=== PATIENT | male | born 1970 | race African-American/Black ===

== ENCOUNTER 2018-06-08 08:21 | Emergency (ER) | payer MEDICAID ==
[~2018-06-08] VITALS: Ht 180.3 cm; Wt 113.0 kg
[2018-06-08] MEDS ORDERED: FLUORESCEIN SODIUM 1MG/STRIP OP ONE (08:45)
[2018-06-08] MEDS ORDERED: TETRACAINE 0.5% OPHTH DROPS 4ML OP ONE (08:45)
[2018-06-08] MEDS ORDERED: FLUORESCEIN SODIUM 1MG/STRIP BOTHEYE ONE (10:00)
[2018-06-08 10:18] LABS: BASOPHILS % 0.3 % (0.0-2.0); EOSINOPHILS % 1.9 % (0.0-5.0); HEMATOCRIT. 38.6 % (42.0-52.0); HEMOGLOBIN. 13.1 g/dL (14.0-18.0); LYMPHOCYTES % 20.9 % (20.0-50.0); MEAN CORPUSCULAR HEMOGLOBIN 30.9 pg (28.0-32.0); MEAN CORPUSCULAR VOLUME 90.9 fL (80.0-94.0); MEAN PLATELET VOLUME 7.4 fl (7.4-10.4); MONOCYTES % 9.6 % (2.0-8.0); NEUTROPHILS % 67.3 % (40.0-76.0); PLATELET 231 x1000/uL (130-400); RED BLOOD CELL COUNT 4.25 mill/uL (4.7-6.1); RED CELL DISTRIBUTION WIDTH 13.1 % (11.6-14.6)
[2018-06-08 10:23] LABS: CHLORIDE 108 mEq/L (98-107)
[2018-06-08] MEDS ORDERED: TOBRAMYCIN 0.3% OPHTH DROPS 5ML LEFTEYE ONE (11:00)
[2018-06-08] MEDS ORDERED: IBUPROFEN 600MG TABLET PO ONE (12:45)
[2018-06-08 13:13] VITALS: BP 110/53
== END 2018-06-08 13:07 | disposition home or self-care (01) ==
LOC: ER 09:22
DX: H16.002 Unspecified corneal ulcer, left eye (principal); I10 Essential (primary) hypertension; F17.200 Nicotine dependence, unspecified, uncomplicated; R51 Headache
CPT/HCPCS: 36415; 80048; 99284

== ENCOUNTER 2019-04-27 13:23 | Inpatient (IN) | payer MEDICAID, OTHER ==
[~2019-04-27] VITALS: Ht 180.3 cm; Wt 132.9 kg
[2019-04-27 16:53] LABS: BASOPHILS % 0.4 % (0.0-2.0); EOSINOPHILS % 4.2 % (0.0-5.0); HEMATOCRIT. 38.5 % (42.0-52.0); HEMOGLOBIN. 12.7 g/dL (14.0-18.0); MEAN CORPUSCULAR VOLUME 91.2 fL (80.0-94.0); MEAN PLATELET VOLUME 8.4 fl (7.4-10.4); MONOCYTES % 9.9 % (2.0-8.0); NEUTROPHILS % 67.5 % (40.0-76.0); PLATELET 228 x1000/uL (130-400); RED BLOOD CELL COUNT 4.23 mill/uL (4.7-6.1); RED CELL DISTRIBUTION WIDTH 13.5 % (11.6-14.6)
[2019-04-27 16:55] LABS: CHLORIDE 110 mEq/L (98-107)
[2019-04-27 17:48] LABS: CLARITY URINE CLEAR (CLEAR); COLOR URINE YELLOW (YELLOW); KETONES URINE NEGATIVE (NEGATIVE); LEUKOCYTE ESTERASE URINE NEGATIVE (NEGATIVE); NITRITE URINE NEGATIVE (NEGATIVE); OCCULT BLOOD URINE NEGATIVE (NEGATIVE); PROTEIN URINE NEGATIVE (NEGATIVE); SPECIFIC GRAVITY URINE 1.026 (1.005-1.030)
[2019-04-27] MEDS ORDERED: HYDRALAZINE 20MG/ML VIAL IV ONE ×2 (18:00→20:00)
[2019-04-27] MEDS ORDERED: NITROGLYCERIN 0.4MG TABLET SL SL PRN (18:15)
[2019-04-27] MEDS ORDERED: ACETAMINOPHEN 500MG TABLET PO ONE (18:15)
[2019-04-27] MEDS ORDERED: GABAPENTIN 400MG CAPSULE PO ONE (18:15)
[2019-04-27 18:36] LABS: *AMPHETAMINES SCREEN URINE NEGATIVE (NEGATIVE); *BARBITURATES SCREEN URINE NEGATIVE (NEGATIVE)
[2019-04-27 18:37] LABS: *BENZODIAZEPINES SCREEN URINE NEGATIVE (NEGATIVE); *COCAINE SCREEN URINE NEGATIVE (NEGATIVE); CANNABINOID URINE SCREEN NEGATIVE (NEGATIVE); METHADONE URINE SCREEN NEGATIVE (NEGATIVE); OPIATES URINE SCREEN NEGATIVE (NEGATIVE); PHENCYCLIDINE URINE SCREEN NEGATIVE (NEGATIVE)
[2019-04-27] MEDS ORDERED: KETOROLAC 15MG/ML VIAL IV ONE (20:15)
[2019-04-27 21:00] VITALS: BP 170/105
[2019-04-27] MEDS ORDERED: LABETALOL HCL 20MG/4ML CARPUJECT IV ONE (21:00)
[2019-04-27] MEDS ORDERED: LABETALOL 5MG/ML SYR 20 MG/4 ML SYRINGE IV ONE (21:15)
[2019-04-27] MEDS ORDERED: HYDROCODONE/ACETAMINOPHEN 10/325MG TABLET PO ONE (21:15)
[2019-04-27 22:00] VITALS: BP 184/100
[2019-04-28] VITALS: BP 182/99
[2019-04-28 04:00] VITALS: BP 197/92
[2019-04-28] MEDS ORDERED: MAGNESIUM/ALUMINUM HYDROXIDE/SIMETHICONE 30ML UDC PO PRN (07:45)
[2019-04-28] MEDS ORDERED: ONDANSETRON HCL 4MG/2ML INJ IV PRN (07:45)
[2019-04-28] MEDS ORDERED: GUAIFENESIN 200MG/10ML SUGAR FREE UDC PO PRN (07:45)
[2019-04-28] MEDS ORDERED: DOCUSATE SODIUM 100MG CAPSULE PO PRN (07:45)
[2019-04-28] MEDS ORDERED: ENOXAPARIN 40MG/0.4ML SYR SUBCUT SCH (07:45)
[2019-04-28] MEDS ORDERED: CLONIDINE 0.1MG TABLET PO PRN (07:45)
[2019-04-28] MEDS ORDERED: DIPHENHYDRAMINE 50MG/ML VIAL IV PRN (07:45)
[2019-04-28] MEDS ORDERED: NA PHOS,M-B/NA PHOS,DI-BA ENEMA 118ML PR PRN (07:45)
[2019-04-28] MEDS ORDERED: LORAZEPAM 2MG/ML CPJ IV PRN (07:45)
[2019-04-28] MEDS ORDERED: HYDRALAZINE 20MG/ML VIAL IV PRN (07:45)
[2019-04-28] MEDS ORDERED: IPRATROPIUM/ALBUTEROL 0.5-3(2.5)MG/3ML NEB HHN PRN (07:45)
[2019-04-28] MEDS ORDERED: ACETAMINOPHEN 325MG TABLET PO PRN (07:45)
[2019-04-28] MEDS ORDERED: MORPHINE SULFATE 2 MG/ML CPJ (NOT FOR IM USE) IV PRN (07:45)
[2019-04-28 08:00] VITALS: BP 189/95
[2019-04-28] MEDS: ENOXAPARIN 40MG/0.4ML SYR SUBCUT SCH ×2 (08:36→21:08)
[2019-04-28] MEDS: ASPIRIN 81MG EC TABLET PO SCH (08:36)
[2019-04-28] MEDS ORDERED: INFLUENZA VIRUS VACCINE(AFLURIA) 0.5ML SYR IM ONE (10:00)
[2019-04-28] MEDS: LISINOPRIL 40MG TABLET PO SCH (10:24)
[2019-04-28 12:00] VITALS: BP 162/80
[2019-04-28] MEDS: SODIUM CHLORIDE 0.9% INJ 3ML FLUSH IVF SCH ×2 (14:34→21:08)
[2019-04-28] MEDS: CLONIDINE 0.2MG TABLET PO SCH ×2 (14:34→21:08)
[2019-04-28 16:00] VITALS: BP 169/103
[2019-04-28 16:39] LABS: CREATINE KINASE 92 IU/L (39-308)
[2019-04-28 16:42] LABS: CREATINE KINASE MB FRACTION < 1.0 ng/mL (0.5-3.6)
[2019-04-28 20:00] VITALS: BP 150/75
[2019-04-28] MEDS ORDERED: AMLODIPINE 5MG TABLET PO SCH (21:00)
[2019-04-28] MEDS: ATORVASTATIN CALCIUM 20MG TABLET PO SCH (21:07)
[2019-04-28 23:21] LABS: CREATINE KINASE 79 IU/L (39-308)
[2019-04-28 23:22] LABS: CREATINE KINASE MB FRACTION < 1.0 ng/mL (0.5-3.6)
[2019-04-29] VITALS: BP 136/73
[2019-04-29 04:00] VITALS: BP 120/78
[2019-04-29] MEDS: SODIUM CHLORIDE 0.9% INJ 3ML FLUSH IVF SCH ×3 (05:43→22:06)
[2019-04-29] MEDS: HYDROCODONE/ACETAMINOPHEN 10/325MG TABLET PO PRN ×2 (05:46→19:33)
[2019-04-29] MEDS: CLONIDINE 0.2MG TABLET PO SCH ×3 (06:30→22:05)
[2019-04-29 06:38] LABS: CHLORIDE 108 mEq/L (98-107)
[2019-04-29 06:39] LABS: BASOPHILS % 0.2 % (0.0-2.0); EOSINOPHILS % 3.8 % (0.0-5.0); HEMATOCRIT. 37.3 % (42.0-52.0); HEMOGLOBIN. 12.3 g/dL (14.0-18.0); LYMPHOCYTES % 17.7 % (20.0-50.0); MEAN CORPUSCULAR VOLUME 90.8 fL (80.0-94.0); MEAN PLATELET VOLUME 7.9 fl (7.4-10.4); MONOCYTES % 11.5 % (2.0-8.0); NEUTROPHILS % 66.8 % (40.0-76.0); PLATELET 224 x1000/uL (130-400); RED BLOOD CELL COUNT 4.11 mill/uL (4.7-6.1); RED CELL DISTRIBUTION WIDTH 13.2 % (11.6-14.6)
[2019-04-29 07:00] LABS: HDL CHOLESTEROL 42 mg/dL (40-59); LDL CHOLESTEROL 74 mg/dL (5-100); T4 FREE 0.96 ng/dL (0.76-1.46)
[2019-04-29 08:00] VITALS: BP 125/75
[2019-04-29] MEDS: ENOXAPARIN 40MG/0.4ML SYR SUBCUT SCH ×2 (09:21→22:05)
[2019-04-29] MEDS: LISINOPRIL 40MG TABLET PO SCH (09:21)
[2019-04-29] MEDS: FUROSEMIDE 40MG/4ML VIAL IVP SCH ×2 (09:21→17:15)
[2019-04-29] MEDS: ASPIRIN 81MG EC TABLET PO SCH (09:22)
[2019-04-29] MEDS ORDERED: AMLODIPINE 5MG TABLET PO SCH (10:15)
[2019-04-29 12:12] VITALS: BP 124/72
[2019-04-29 16:00] VITALS: BP 159/90
[2019-04-29 20:00] VITALS: BP 145/77
[2019-04-29] MEDS: ATORVASTATIN CALCIUM 20MG TABLET PO SCH (22:05)
[2019-04-30] VITALS: BP 150/82
== END 2019-04-30 03:15 | disposition left against medical advice (07) | DRG 199 ==
LOC: ER 13:23 → 8WST 18:02 → EDBEDREQ 18:23 → EDBEDREQTM 18:23 → ENRESERV 19:44 → 8WST 04-28 01:01
PROVIDERS: ADMIT Internal Medicine; ATTEND Internal Medicine
DX: I16.0 Hypertensive urgency (principal); Z68.41 Body mass index [BMI] 40.0-44.9, adult; F17.210 Nicotine dependence, cigarettes, uncomplicated; I10 Essential (primary) hypertension; Z53.29 Procedure and treatment not carried out because of patient's decision for other reasons; Z91.19 Patient's noncompliance with other medical treatment and regimen; Z91.14 Patient's other noncompliance with medication regimen
CPT/HCPCS: 36415; 71045; 80061; 80305; 81003; 82550; 82553; 83880; 84439; 84443; 84484; 93306; 93970; 96374; 99285; J0360; J1650; J1885; J1940; J3490

== ENCOUNTER 2019-07-31 12:49 | Emergency (ER) | payer OTHER ==
[~2019-07-31] VITALS: Ht 180.3 cm; Wt 118.0 kg
[2019-07-31 13:52] VITALS: BP 199/95
[2019-07-31 14:20] LABS: BASOPHILS % 0.5 % (0.0-2.0); EOSINOPHILS % 1.7 % (0.0-5.0); HEMATOCRIT. 39.2 % (42.0-52.0); HEMOGLOBIN. 12.7 g/dL (14.0-18.0); LYMPHOCYTES % 20.4 % (20.0-50.0); MEAN CORPUSCULAR HEMOGLOBIN 29.2 pg (28.0-32.0); MEAN CORPUSCULAR VOLUME 89.8 fL (80.0-94.0); MONOCYTES % 8.9 % (2.0-8.0); NEUTROPHILS % 68.5 % (40.0-76.0); RED BLOOD CELL COUNT 4.37 mill/uL (4.7-6.1)
[2019-07-31 14:26] LABS: CHLORIDE 111 mEq/L (98-107)
[2019-07-31 14:28] LABS: PROTHROMBIN TIME 10.7 sec (9.6-11.0)
[2019-07-31] MEDS ORDERED: IBUPROFEN 400MG TABLET PO ONE (15:00)
[2019-07-31 15:46] LABS: MEAN PLATELET VOLUME 8.8 fl (7.4-10.4); PLATELET 210 x1000/uL (130-400)
== END 2019-07-31 15:25 | disposition home or self-care (01) ==
LOC: ER 12:49
DX: R60.9 Edema, unspecified (principal); F17.290 Nicotine dependence, other tobacco product, uncomplicated; I10 Essential (primary) hypertension
CPT/HCPCS: 36415; 71045; 80053; 83880; 84484; 85025; 85610; 93005; 93970; 99284; Z7610

== ENCOUNTER 2023-02-14 12:23 | Emergency (ER) | payer OTHER ==
[~2023-02-14] VITALS: Ht 182.9 cm; Wt 100.0 kg
[2023-02-14] MEDS ORDERED: NEOM7.5D8 EACHEYE (12:41)
[2023-02-14 12:44] VITALS: BP 139/81; PULSE 100; RESP 17; TEMP 98.6; O2SAT 99
== END 2023-02-14 13:06 | disposition home or self-care (01) ==
LOC: ER 12:23
DX: H10.9 Unspecified conjunctivitis (principal)
CPT/HCPCS: 99281; 99283

== ENCOUNTER 2024-02-15 10:44 | Emergency (ER) | payer OTHER ==
[~2024-02-15] VITALS: Ht 180.3 cm; Wt 98.0 kg
[~2024-02-15 10:44] MED LIST: NEOM7.5D8 EACHEYE
[2024-02-15 10:56] VITALS: TEMP 98.2; O2SAT 100
[2024-02-15 12:00] LABS: BASOPHILS % 0.5 % (0.0-2.0); EOSINOPHILS % 1.9 % (0.0-5.0); HEMATOCRIT. 41.2 % (42.0-52.0); LYMPHOCYTES % 16.5 % (20.0-50.0); MEAN CORPUSCULAR HEMOGLOBIN 28.9 pg (28.0-32.0); MEAN CORPUSCULAR HGB CONC 31.6 g/dL (31.0-37.0); MEAN CORPUSCULAR VOLUME 91.6 fL (80.0-94.0); MEAN PLATELET VOLUME 8.1 fl (7.4-10.4); MONOCYTES % 14.5 % (2.0-8.0); NEUTROPHILS % 66.6 % (40.0-76.0); PLATELET 235 x1000/uL (130-400); RED BLOOD CELL COUNT 4.49 mill/uL (4.7-6.1); RED CELL DISTRIBUTION WIDTH 14.2 % (11.6-14.6); WHITE BLOOD COUNT 4.9 x1000/uL (4.5-11.0)
[2024-02-15 12:03] LABS: CHLORIDE 106 mEq/L (98-107); POTASSIUM 3.7 mEq/L (3.5-5.1); SODIUM 136 mEq/L (136-145)
[2024-02-15 12:04] LABS: CARBON DIOXIDE 24 mEq/L (21-32)
[2024-02-15 12:05] LABS: CALCIUM 9.5 mg/dL (8.7-10.4)
[2024-02-15 12:09] LABS: CREATININE 0.7 mg/dL (0.6-1.3); GLUCOSE 95 mg/dL (70-105); UREA NITROGEN BLOOD 5 mg/dL (9-23)
[2024-02-15] MEDS: TETRACAINE 0.5% OPHTH DROPS 4ML RIGHTEYE ONE (12:45)
[2024-02-15] MEDS: TOBRAMYCIN 0.3% OPHTH DROPS 5ML OP SCH (12:45)
[2024-02-15] MEDS: FLUORESCEIN SODIUM 1MG/STRIP RIGHTEYE ONE (12:45)
[2024-02-15] MEDS: TETRACAINE 0.5% OPHTH DROPS 4ML RIGHTEYE SCH (12:55)
[2024-02-15] MEDS: FLUORESCEIN SODIUM 1MG/STRIP RIGHTEYE SCH (12:55)
[2024-02-15] MEDS ORDERED: TOBR5DRO47 RIGHTEYE (15:39)
[2024-02-15 16:54] VITALS: BP 160/70; PULSE 78; RESP 20
[2024-02-18] MEDS ORDERED: LISI-186 PO (00:09)
[2024-02-18] MEDS ORDERED: AMLO5TAB88 PO (00:09)
[2024-02-20] MEDS ORDERED: HYDR50TA39 PO (17:05)
[2024-02-20] MEDS ORDERED: AMLO5TAB88 PO (17:05)
[2024-02-20] MEDS ORDERED: TOBR5DRO47 RIGHTEYE (17:05)
[2024-02-20] MEDS ORDERED: LISI-186 PO (17:05)
[2024-02-20] MEDS ORDERED: HYDR100T26 MT (22:15)
== END 2024-02-15 16:55 | disposition home or self-care (01) ==
LOC: ER 11:14
DX: H16.9 Unspecified keratitis (principal); I10 Essential (primary) hypertension
CPT/HCPCS: 36415; 80048; 85025; 93005; 99284

== ENCOUNTER 2024-03-14 23:21 | Emergency (ER) | payer MEDICAID, OTHER ==
[~2024-03-14] VITALS: Ht 180.3 cm; Wt 114.0 kg
[~2024-03-14 23:21] MED LIST changes: +AMLO5TAB88 PO; +HYDR100T11 MT; +LISI-186 PO; -NEOM7.5D8 EACHEYE; +TOBR5DRO47 RIGHTEYE
[2024-03-15 00:02] VITALS: O2SAT 100
[2024-03-15] MEDS: TETRACAINE 0.5% OPHTH DROPS 4ML BOTHEYE ONE (04:12)
[2024-03-15] MEDS: FLUORESCEIN SODIUM 1MG/STRIP EACHEYE ONE (04:12)
[2024-03-15] MEDS ORDERED: CIPR2.5D20 EACHEYE (05:16)
[2024-03-15] MEDS ORDERED: ACET-2708 MT (05:16)
[2024-03-15 06:15] VITALS: BP 159/99; PULSE 78; RESP 19; TEMP 36.72516; O2SAT 100
== END 2024-03-15 06:18 | disposition home or self-care (01) ==
LOC: ER 23:21
DX: H16.002 Unspecified corneal ulcer, left eye (principal); Z13.9 Encounter for screening, unspecified
CPT/HCPCS: 99283

== ENCOUNTER 2024-06-30 10:36 | Emergency (ER) | payer OTHER, MEDICAID ==
[~2024-06-30] VITALS: Ht 180.3 cm; Wt 117.0 kg
[~2024-06-30 10:36] MED LIST changes: +ACET-2708 MT; +CIPR2.5D20 EACHEYE
[2024-06-30 11:07] VITALS: O2SAT 100
[2024-06-30] MEDS ORDERED: ERYT1OIN6 EACHEYE (14:00)
[2024-06-30 14:15] VITALS: BP 155/97; PULSE 70; RESP 16; TEMP 36.50292; O2SAT 100
== END 2024-06-30 14:25 | disposition home or self-care (01) ==
LOC: ER 10:36
DX: H10.89 Other conjunctivitis (principal); F10.90 Alcohol use, unspecified, uncomplicated; Z79.899 Other long term (current) drug therapy; Y90.9 Presence of alcohol in blood, level not specified
CPT/HCPCS: 99283